=== PATIENT | male | born 2000 | race Caucasian/White ===

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

== ENCOUNTER 2022-05-23 14:18 | Emergency (ER) | payer BC, MEDICAID ==
[~2022-05-23] VITALS: Ht 188 cm; Wt 72.7 kg
[2022-05-23 14:32] VITALS: BP 142/80
[2022-05-23] MEDS ORDERED: AMOX500C2 PO (16:02)
[2022-05-23] MEDS ORDERED: IBUP-1986 PO (16:02)
== END 2022-05-23 16:09 | disposition home or self-care (01) ==
LOC: ER 14:21
DX: K04.7 Periapical abscess without sinus (principal); Z79.899 Other long term (current) drug therapy
CPT/HCPCS: 99283